=== PATIENT | male | born 1995 | race Caucasian/White ===

== ENCOUNTER 2020-11-14 08:01 | Emergency (ER) | payer OTHER ==
[2020-11-14 09:04] LABS: BASOPHIL 0.7 % (0-2); EOSINOPHIL 0.4 % (0-5); HCT 53.2 % (42.0-52.0); HGB 18.3 g/dl (13.2-18.0); LYMPHOCYTE 22.4 % (15-48); MCH 29.6 pg (25.0-31.0); MCHC 34.4 g/dL (32.0-36.0); MCV 85.9 fL (78.0-100.0); MONOCYTE 5.6 % (0-12); MPV 10.9 fL (6.0-9.5); NEUTROPHIL 70.1 % (41-80); NRBC 0; PLT 172 K/uL (150-400); RBC 6.19 M/uL (4.70-6.00); RDW 13.4 % (11.5-14.0); WBC 9.1 K/uL (4.0-10.5)
[2020-11-14 09:19] LABS: CREATININE 0.94 mg/dL (0.67-1.17)
[2020-11-14 09:51] LABS: BILIRUBIN NEGATIVE (NEGATIVE); BLOOD 3+ Ery/uL (NEGATIVE); CLARITY CLEAR (CLEAR); COLOR YELLOW (YELLOW); GLUCOSE (U) NORMAL (NORMAL); LEUKOCYTES NEGATIVE Leu/uL (NEGATIVE); NITRITE NEGATIVE (NEGATIVE); PROTEIN 3+ mg/dL (NEGATIVE); SPECIFIC GRAVITY >=1.030 (1.001-1.030); UROBILINOGEN 0.2 mg/dL (0.2-1.0)
[2020-11-14 09:57] LABS: BACTERIA TRACE; URINARY RBC 20-50
[2020-11-14] MEDS ORDERED: FLOMAX 0.4 MG0.4 MG PO (10:47)
[2020-11-14] MEDS ORDERED: KETOROLAC TROME10 MG PO (10:48)
== END 2020-11-14 11:00 | disposition home or self-care (01) ==
LOC: FER 08:01
PROVIDERS: Emergency Medicine
DX: N13.2 Hydronephrosis with renal and ureteral calculous obstruction (principal)
CPT/HCPCS: 36415; 80048; 81001; 85025; J1885; J2405

== ENCOUNTER 2022-01-14 00:02 | Emergency (ER) | payer OTHER ==
[~2022-01-14 00:02] MED LIST: FLOMAX 0.4 MG0.4 MG PO; KETOROLAC TROME10 MG PO
[2022-01-14] MEDS ORDERED: VENTOLIN HFA IN18 GM INH (04:53)
[2022-01-14] MEDS ORDERED: NORCO 5-325 TA1 EACH PO (04:53)
== END 2022-01-14 05:20 | disposition home or self-care (01) ==
LOC: FER 00:02
DX: T59.811A Toxic effect of smoke, accidental (unintentional), initial encounter (principal); T23.112A Burn of first degree of left thumb (nail), initial encounter; T23.111A Burn of first degree of right thumb (nail), initial encounter; T25.022A Burn of unspecified degree of left foot, initial encounter; T25.021A Burn of unspecified degree of right foot, initial encounter; I10 Essential (primary) hypertension; Z23 Encounter for immunization; X08.8XXA Exposure to other specified smoke, fire and flames, initial encounter; Y92.009 Unspecified place in unspecified non-institutional (private) residence as the place of occurrence of the external cause; Z28.310 Unvaccinated for COVID-19
CPT/HCPCS: 71045; 90471; 90715; 94640; 94664; J7030